=== PATIENT | female | born 1980 | race Caucasian/White ===

== ENCOUNTER → 2019-05-13 | Outpatient (CLI) | payer OTHER ==
[~2019-05-13] MED LIST: CITA20TA9 PO; MECL-76 PO
== END | disposition home or self-care (01) ==
LOC: CFH 15:00
PROVIDERS: ATTEND Family Medicine
DX: N94.6 Dysmenorrhea, unspecified (principal)
CPT/HCPCS: 76830

== ENCOUNTER → 2020-01-22 | Outpatient (CLI) | payer OTHER | END | disposition home or self-care (01) | LOC: CLISVCS 10:25 | PROVIDERS: ATTEND Anesthesiology | DX: Z20.828 Contact with and (suspected) exposure to other viral communicable diseases (principal) | CPT/HCPCS: 87635 ==

== ENCOUNTER 2020-01-28 12:36 | Day surgery (SDC) | payer OTHER ==
[~2020-01-28] VITALS: Ht 175.3 cm; Wt 84.0 kg
[2020-01-28] MEDS ORDERED: PROPOFOL 10 MG/ML, 20ML ONE (13:28)
[2020-01-28] MEDS ORDERED: DEXAMETHASONE 4 MG/ML, 1ML ONE (13:28)
[2020-01-28] MEDS ORDERED: LIDOCAINE-MPF 2% ,5ML ONE (13:28)
[2020-01-28] MEDS ORDERED: FENTANYL PF 100 MCG/2ML ONE ×2 (13:28→15:26)
[2020-01-28] MEDS ORDERED: MIDAZOLAM 1 MG/ML, 5ML ONE (13:28)
[2020-01-28] MEDS ORDERED: GLYCOPYRROLATE 0.2MG/1ML, 5ML ONE (13:28)
[2020-01-28] MEDS ORDERED: ROCURONIUM 10MG/ML,5ML ONE (13:28)
[2020-01-28] MEDS ORDERED: EPHEDRINE 50 MG/ML, 1ML IVPush PRN (13:30)
[2020-01-28] MEDS ORDERED: MIDAZOLAM 1 MG/ML, 2ML IV PRN (13:30)
[2020-01-28] MEDS ORDERED: HYDROmorphone 1 MG/ML, 1ML INJ IVPush PRN (13:30)
[2020-01-28] MEDS ORDERED: LACTATED RINGERS 1,000 ML IV SCH (13:30)
[2020-01-28] MEDS ORDERED: MEPERIDINE/PF 25MG/0.5ML IVPush PRN (13:30)
[2020-01-28] MEDS ORDERED: DIAZEPAM 5 MG/ML, 2ML IVPush PRN (13:30)
[2020-01-28] MEDS ORDERED: METOCLOPRAMIDE 5 MG/ML, 2ML IVPush PRN (13:30)
[2020-01-28] MEDS ORDERED: ONDANSETRON 2MG/ML, 2ML IVPush PRN (13:30)
[2020-01-28] MEDS ORDERED: ACETAMINOPHEN 325 MG TABLET PO PRN (13:30)
[2020-01-28] MEDS ORDERED: DIPHENHYDRAMINE 50 MG/ML, 1ML IVPush PRN (13:30)
[2020-01-28] MEDS ORDERED: ALBUTEROL/IPRATROPIUM 2.5MG/0.5MG, 3 ML NPPB PRN (13:30)
[2020-01-28] MEDS ORDERED: HALOPERIDOL 5 MG/ML IV PRN (13:30)
[2020-01-28] MEDS ORDERED: LABETALOL 5MG/ML, 20ML IV PRN (13:30)
[2020-01-28] MEDS ORDERED: HYDROcodone/APAP 7.5-325MG/15ML UDC PO PRN (13:30)
[2020-01-28] MEDS ORDERED: CHLORHEXIDINE 15 ML UDC MM ONE (13:30)
[2020-01-28] MEDS ORDERED: EPHEDRINE 50 MG/ML, 1ML IM PRN (13:30)
[2020-01-28] MEDS ORDERED: KETOROLAC 30 MG/1 ML IVPush PRN (13:30)
[2020-01-28] MEDS ORDERED: hydrALAzine 20 MG/ML, 1ML IV PRN (13:30)
[2020-01-28] MEDS ORDERED: LIDOCAINE-MPF 1%, 2ML INFIL ONE (13:30)
[2020-01-28] MEDS ORDERED: LORazepam 2 MG/ML, 1ML IVPush PRN (13:30)
[2020-01-28] MEDS ORDERED: CHLORHEXIDINE 15 ML UDC ONE (13:34)
[2020-01-28 13:52] LABS: HCG UR SG 1.026 (1.003-1.030); MICROSCOPIC NOT IND
[2020-01-28] MEDS ORDERED: SILVER NITRATE STICK TP ONE (14:03)
[2020-01-28] MEDS ORDERED: BUPIVACAINE/PF 0.25% ONE (14:03)
[2020-01-28 14:04] VITALS: BP 121/86
[2020-01-28] MEDS ORDERED: EPINEPHRINE 1 MG/ML, 1ML ONE (14:04)
[2020-01-28 14:15] LABS: BASOPHILS % (AUTO) 1 % (0-1); EOSINOPHILS % (AUTO) 3 % (1-7); LYMPHOCYTES % (AUTO) 47 % (22-44); MEAN CORPUSCULAR HEMOGLOBIN 28.7 pg (27.0-34.8); MEAN CORPUSCULAR HGB CONC 32.9 g/dL (32.4-35.8); MEAN PLATELET VOLUME 6.6 fL (7.4-10.4); MONOCYTES % (AUTO) 10 % (2-9); NEUTROPHILS % (AUTO) 40 % (42-75); PLATELET COUNT 327 x10^3/uL (130-400); RED BLOOD COUNT 4.56 x10^6/uL (3.82-5.3); RED CELL DISTRIBUTION WIDTH 13.1 % (9.6-15.2)
[2020-01-28] MEDS ORDERED: NONE PER PATIENT (14:23)
[2020-01-28] MEDS ORDERED: PLEASE ENTER HEIGHT AND WEIGHT MC SCH (14:30)
[2020-01-28] MEDS ORDERED: ONDANSETRON 2MG/ML, 2ML ONE (14:40)
[2020-01-28] MEDS ORDERED: CEFAZOLIN 1,000 MG ONE (14:40)
[2020-01-28 14:53] LABS: MD SCAN
[2020-01-28] MEDS ORDERED: KETOROLAC 30 MG/1 ML ONE (15:26)
[2020-01-28] MEDS ORDERED: ACETAMINOPHEN 650 MG/20.3 ML UDC ONE (15:26)
[2020-01-28] MEDS ORDERED: OXYcodone 5 MG/5 ML ORAL.SOL UDC ONE ×2 (15:26→16:20)
[2020-01-28] MEDS: OXYcodone 5 MG/5 ML ORAL.SOL UDC PO PRN ×3 (15:44→17:52)
[2020-01-28] MEDS: FENTANYL PF 100 MCG/2ML IV PRN ×3 (15:48→16:21)
[2020-01-28] MEDS ORDERED: METHOCARBAMOL 1,000 MG in DEXTROSE 5% 100 ML IV PRN (16:00)
== END 2020-01-28 18:20 | disposition home or self-care (01) ==
LOC: OUT 12:36
PROVIDERS: ATTEND Obstetrics & Gynecology
DX: N92.1 Excessive and frequent menstruation with irregular cycle (principal); N84.0 Polyp of corpus uteri; F41.9 Anxiety disorder, unspecified; F17.210 Nicotine dependence, cigarettes, uncomplicated; Z79.899 Other long term (current) drug therapy; Z98.51 Tubal ligation status
CPT/HCPCS: 36415; 58563; 81003; 81025; 85025; 88305; J0690; J1100; J1885; J2250; J2405; J2704; J2800; J3010; J7120; J0171